=== PATIENT | female | born 1955 | race Caucasian/White ===

== ENCOUNTER 2018-01-21 00:07 | Emergency (ER) | payer OTHER ==
[~2018-01-21 00:07] MED LIST: ESTR0.62 VAGINAL; NYST10007 TOPICAL
[2018-01-21 00:17] VITALS: BP 121/68; PULSE 64; RESP 22; TEMP 98.3; O2SAT 95
[2018-01-21] MEDS ORDERED: PROCHLORPERAZINE INJ 10 MG/2 ML VIAL IV PUSH ONE (00:45)
[2018-01-21] MEDS ORDERED: SODIUM CHLOR 0.9% 1000 ML INJ 1,000 ML IV ONE (00:45)
--- NOTE | 2018-01-21 00:56 | PD ---
HPI Chief Complaint: Abdominal Pain Time Seen by Provider: 00:35 Travel History International Travel<30 days: No Contact w/Intl Traveler<30days: No Traveled to known affect area: No History of Present Illness HPI The patient is a 62 year old female who presents to the [facility] emergency department with a history of abdominal pain that began suddenly at approximately 11 PM. The patient reports that the pain is been constant and comes in waves. She reports that initially it was severe, however it decreased to a 2 out of 10 in severity on arrival to the emergency department. She reports that she had nausea and vomiting 4-5 times prior to arrival. She reports that her last meal was at 6 PM. She reports the pain is similar to when she had pancreatitis in the past. She reports that the pain is a sensation of a brick lying in the midepigastric area. The patient reports the pain radiates to her back. She reports that she last had a glass of wine 4 days ago. She reports that she rarely drinks alcohol. She reports that when she had pancreatitis in 2014, a cause was not able to be determined. She reports that she had a cholecystectomy in 2001. She reports that she last moved her bowels earlier this evening. She denies having any blood in her stool or black or tarry stools. She does report having problems recently with indigestion, she took Tums prior to arrival and also took times a night before when she went to bed. She denies having any chest pain or chest pressure. She reports having shortness of breath with the pain is at its peak. She denies having any known recent fevers, cough or congestion, neck pain, diarrhea, urinary symptoms, or neurologic symptoms. [facility] Past Medical History Narrative Medical The patient's past medical history is significant for sciatica, arthritis, history of pancreatitis in 2014 Hx Anticoagulant Therapy: No Arthritis: Yes (L knee) Autoimmune Disease: No Heart Rhythm Problems: No Cancer: No Cardiovascular Problems: No High Cholesterol: Yes Chemotherapy: No Chest Pain: No Congestive Heart Failure: No Cerebrovascular Accident: No Diabetes: No Diminished Hearing: No Endocrine: No Gastrointestinal Disorders: Yes GERD: No Genitourinary: Yes Headaches: Yes Hiatal Hernia: No Hypertension: No Immune Disorder: No Implanted Vascular Access Dvce: No Musculoskeletal: Yes Neurologic: Yes Psychiatric: No Reproductive: No Respiratory: No Migraines: Yes Pancreatitis: Yes Seizures: No Ulcer: No ?: Not Past Surgical History Narrative Surgical The patient's past surgical history is significant for cholecystectomy in 2002. Abdominal Surgery: Yes Cardiac Surgery: No Cholecystectomy: Yes Ear Surgery: No Endocrine Surgery: No Eye Surgery: Yes (laser) Genitourinary Surgery: No Gynecologic Surgery: No Hysterectomy: No Neurologic Surgery: No Oral Surgery: No Thoracic Surgery: No Other Surgery: Yes (cholecystectomy) Social History Alcohol Use: Yes (She will rarely drinks alcohol, last drink was 4 days ago) Tobacco Use: No Substance Use: No Allergies-Medications (Allergen,Severity, Reaction): Coded Allergies: No Known Allergies (Verified Allergy, Unknown, 01/21/18) Reported Meds & Prescriptions Reported Meds & Active Scripts Active No Active Prescriptions or Reported Medications Review of Systems Except as stated in HPI: all other systems reviewed are Neg General / Constitutional: No: Fever Eyes: No: Visual changes HENT: No: Headaches, Congestion Cardiovascular: No: Chest Pain or Discomfort Respiratory: Positive: Shortness of Breath (With pain), No: Cough Gastrointestinal: Positive: Nausea, Vomiting, Abdominal Pain, Indigestion, No: Diarrhea, Hematemesis, Hematochezia, Changes in Bowel Habits, Loss of Appetite Genitourinary: No: Dysuria Musculoskeletal: No: Pain Skin: No Rash Neurologic: No: Weakness, Focal Abnormalities, Change in Mentation, Slurred Speech, Sensory Disturbance Psychiatric: No: Depression Endocrine: No: Polydipsia Hematologic/Lymphatic: No: Easy Bruising Physical Exam Narrative General: The patient is a well-developed well-nourished female in no acute distress. Head and Neck exam: Head is normocephalic atraumatic. Eyes: EOMI, pupils are equal round and reactive to light. Nose: Midline septum with pink mucous membranes Mouth: Dentition unremarkable. Moist mucus membranes. Posterior oropharynx is not erythematous. No tonsillar hypertrophy. Uvula midline. Airway patent. Neck: No palpable lymphadenopathy. No nuchal rigidity. No thyromegaly. Cardiovascular: Regular rate and rhythm without murmurs, gallops, or rubs. No pulse deficit to the extremities on simultaneous auscultation and palpation of her radial artery. Lungs: Clear to auscultation bilaterally. No wheezes, rhonchi, or rales. Abdomen: Soft, with tenderness on palpation in the midepigastric area and left upper quadrant of the abdomen, no other tenderness on palpation of the other quadrants of the abdomen. No guarding, rebound, or rigidity. Normal bowel sounds are audible. No tenderness on palpation of McBurney's point. Negative Yoder sign. Extremities: No clubbing, cyanosis, or edema. 2+ pulses in all 4 extremities. No calf tenderness on palpation peer Back: No spinous process tenderness to palpation. The patient reports a left-sided CVA tenderness on palpation. Neurologic Exam: Grossly nonfocal. Skin Exam: No rash noted. Intact skin that is warm and dry. Data Data Last Documented VS Vital Signs Date Time Temp Pulse Resp B/P (MAP) Pulse Ox O2 Delivery O2 Flow Rate FiO2 01/21/18 03:28 01/21/18 01:24 80 18 99 Room Air 01/21/18 00:17 98.3 Orders Orders Complete Blood Count With Diff (01/21/18 00:39) Comprehensive Metabolic Panel (01/21/18 00:39) C-Reactive Protein (Crp) (01/21/18 00:39) Lipase (01/21/18 00:39) Urinalysis - C+S If Indicated (01/21/18 00:39) Magnesium (Mg) (01/21/18 00:39) Ct Abd/Pel W Iv Contrast(Rout) (01/21/18 00:39) Iv Access Insert/Monitor (01/21/18 00:39) Ecg Monitoring (01/21/18 00:39) Oximetry (01/21/18 00:39) Lactic Acid (01/21/18 00:39) Sodium Chlor 0.9% 1000 Ml Inj (Ns 1000 M (01/21/18 00:45) Prochlorperazine Inj (Compazine Inj) (01/21/18 00:45) Iohexol 350 Inj (Omnipaque 350 Inj) (01/21/18 02:20) Oral Rehydration (01/21/18 02:49) Ed Discharge Order (01/21/18 03:29) Labs Laboratory Tests Test 01/21/18 00:50 01/21/18 01:47 White Blood Count 8.2 TH/MM3 Red Blood Count 4.71 MIL/MM3 Hemoglobin 14.7 GM/DL Hematocrit 42.7 % Mean Corpuscular Volume 90.6 FL Mean Corpuscular Hemoglobin 31.1 PG Mean Corpuscular Hemoglobin Concent 34.4 % Red Cell Distribution Width 12.7 % Platelet Count 258 TH/MM3 Mean Platelet Volume 8.4 FL Neutrophils (%) (Auto) 73.1 % Lymphocytes (%) (Auto) 20.3 % Monocytes (%) (Auto) 5.6 % Eosinophils (%) (Auto) 0.7 % Basophils (%) (Auto) 0.3 % Neutrophils # (Auto) 6.0 TH/MM3 Lymphocytes # (Auto) 1.7 TH/MM3 Monocytes # (Auto) 0.5 TH/MM3 Eosinophils # (Auto) 0.1 TH/MM3 Basophils # (Auto) 0.0 TH/MM3 CBC Comment DIFF FINAL Differential Comment Blood Urea Nitrogen 17 MG/DL Creatinine 1.14 MG/DL Random Glucose 134 MG/DL Total Protein 7.1 GM/DL Albumin 3.7 GM/DL Calcium Level 9.2 MG/DL Magnesium Level 2.3 MG/DL Alkaline Phosphatase 88 U/L Aspartate Amino Transf (AST/SGOT) 161 U/L Alanine Aminotransferase (ALT/SGPT) 115 U/L Total Bilirubin 0.9 MG/DL Sodium Level 143 MEQ/L Potassium Level 3.5 MEQ/L Chloride Level 104 MEQ/L Carbon Dioxide Level 32.4 MEQ/L Anion Gap 7 MEQ/L Estimat Glomerular Filtration Rate 49 ML/MIN Lactic Acid Level 1.5 mmol/L C-Reactive Protein 0.32 MG/DL Lipase 288 U/L Urine Color YELLOW Urine Turbidity HAZY Urine pH 7.5 Urine Specific [place] 1.017 Urine Protein TRACE mg/dL Urine Glucose (UA) NEG mg/dL Urine Ketones NEG mg/dL Urine Occult Blood NEG Urine Nitrite NEG Urine Bilirubin NEG Urine Urobilinogen 4.0 MG/DL Urine Leukocyte Esterase NEG Urine RBC LESS THAN 1 /hpf Urine WBC 2 /hpf Urine Squamous Epithelial Cells 1 /hpf Urine Amorphous Sediment RARE Urine Bacteria RARE /hpf Urine Hyaline Casts 2 /lpf Urine Granular Casts 6 /lpf Urine Mucus FEW /lpf Urine Yeast (Budding) FEW Microscopic Urinalysis Comment CULT NOT INDICATED MDM Medical Decision Making Medical Screen Exam Complete: Yes Emergency Medical Condition: Yes Medical Record Reviewed: Yes Differential Diagnosis Pancreatitis, versus peptic ulcer disease, versus gastritis, versus gastroesophageal reflux disease, versus viral syndrome Narrative Course During the course of the patient's emergency department visit, the patient's history, examination, and differential diagnosis were reviewed with the patient. The patient was placed on a phototypesetting equipment monitor with oximetry and frequent blood pressure monitoring. The patient had IV access obtained and blood work sent for analysis. The patient was initially provided [-]. The patient's laboratory studies were reviewed and remarkable for a white count of 8.2, hemoglobin 14.7, platelets 258 with 73.1 neutrophils, CMP is remarkable for CO2 32.8, creatinine 1.14, glucose 134, magnesium 2.3, AST is 161, ALT 115, lipase within normal limits at 288, C-reactive protein 0.32. The patient's CMP' s and liver function tests from prior evaluations were reviewed. The patient has had elevated liver enzymes in the past. The patient will be given a copy of her current liver enzymes to discuss with her primary care physician in follow-up. Urinalysis shows 4 urobilinogen, rare bacteria, culture not indicated, no other signs of infection peer Radiology studies were reviewed and remarkable for Last Impressions Abdomen/Pelvis CT 01/21/18 0039 Signed Impressions: Service Date/Time: Sunday, January 21, 2018 01:46 - CONCLUSION: 1. No acute findings in abdomen and pelvic CT. Mild fatty liver. Previous cholecystectomy. Colonic diverticula without diverticulitis. No evidence for pancreatitis. Woodrow Elliott MD CT scan of the abdomen and pelvis shows no acute abnormality. The patient on reexamination is reportedly feeling improved. The patient was started on oral rehydration and is tolerating this well. The patient will be discharged home. The patient will be discharged home with a prescription for Zofran. The patient is resting comfortably and feels better, is alert and in no distress. The patient's results and examination findings were discussed with the patient. The repeat examination is unremarkable and benign. The history, exam, diagnostic testing, and current condition do not suggest any significant pathology to warrant further testing, continued ED treatment, admission, or surgical evaluation at this point. The vital signs have been stable. The patient does not have uncontrollable pain, intractable vomiting, or other significant symptoms. The patient's condition is stable and appropriate for discharge. The patient will pursue further outpatient evaluation with a primary care physician or other designated or consulting physician as indicated in the discharge instructions. The patient expressed understanding and was agreeable with this plan. Diagnosis Primary Impression: Abdominal pain Qualified Codes: R10.10 - Upper abdominal pain, unspecified Additional Impression: Elevated liver enzymes Referrals: Primary Care Physician 2 days Patient Instructions: Abdominal Pain (ED), Acute Nausea and Vomiting (ED), General Instructions Additional Instructions: The patient is provided a copy of her liver enzymes which are noted to be elevated and have been elevated in the past in the emergency department. She is instructed regarding the importance of discussing this further with her primary care physician is additional testing is warranted to evaluate for possible underlying viral hepatitis, versus fatty liver, versus autoimmune related hepatitis. Regarding the elevated liver enzymes, the patient is instructed to avoid Tylenol and alcohol. Med/Other Pt SpecificInfo: Prescription(s) given Scripts Ondansetron Odt (Zofran Odt) 4 Mg Tab 4 MG SL Q6HR Y for Nausea/Vomiting, #7 TAB 0 Refills Prov: Marcela Rasmussen MD 01/21/18 Disposition: 01 DISCHARGE HOME Condition: Stable Marcela Rasmussen MD January 21, 2018 00:56
[2018-01-21 01:00] VITALS: O2SAT 98
[2018-01-21 01:01] LABS: BASOPHIL % 0.3 % (0.0-2.0); EOSINOPHIL # 0.1 TH/MM3 (0-0.4); EOSINOPHIL % 0.7 % (0.0-4.0); HEMATOCRIT 42.7 % (35.0-46.0); HEMOGLOBIN 14.7 GM/DL (11.6-15.3); LYMPH % 20.3 % (9.0-44.0); LYMPHOCYTE # 1.7 TH/MM3 (1.0-4.8); MEAN CELL VOLUME 90.6 FL (80.0-100.0); MEAN CORPUSCULAR HEMOGLOBIN 31.1 PG (27.0-34.0); MEAN CORPUSCULAR HGB CONC 34.4 % (32.0-36.0); MEAN PLATELET VOLUME 8.4 FL (7.0-11.0); MONO % 5.6 % (0.0-8.0); MONOCYTE # 0.5 TH/MM3 (0-0.9); NEUT % 73.1 % (16.0-70.0); PLATELET COUNT 258 TH/MM3 (150-450); RED BLOOD COUNT 4.71 MIL/MM3 (4.00-5.30); RED CELL DISTRIBUTION WIDTH 12.7 % (11.6-17.2); WHITE BLOOD COUNT 8.2 TH/MM3 (4.0-11.0)
[2018-01-21 01:24] VITALS: BP 121/70; PULSE 80; RESP 18; O2SAT 99
[2018-01-21 01:26] LABS: ALBUMIN 3.7 GM/DL (3.4-5.0); ALT (GPT) 115 U/L (10-53); AST (GOT) 161 U/L (15-37); BICARBONATE 32.4 MEQ/L (21.0-32.0); BLOOD UREA NITROGEN 17 MG/DL (7-18); C-REACTIVE PROTEIN 0.32 MG/DL (0.00-0.30); CALCIUM 9.2 MG/DL (8.5-10.1); CHLORIDE 104 MEQ/L (98-107); CREATININE 1.14 MG/DL (0.50-1.00); GLOMERULAR FILTRATION RATE 49 ML/MIN (>89); GLUCOSE,RANDOM 134 MG/DL (74-106); MAGNESIUM 2.3 MG/DL (1.5-2.5); SODIUM (NA) 143 MEQ/L (136-145)
[2018-01-21 01:29] LABS: ALKALINE PHOSPHATASE 88 U/L (45-117); TOTAL BILIRUBIN ADULT 0.9 MG/DL (0.2-1.0); TOTAL PROTEIN 7.1 GM/DL (6.4-8.2)
[2018-01-21 01:56] LABS: AMORPHOUS SEDIMENT, URINE RARE; BACTERIA, URINE RARE /hpf; BILIRUBIN, URINE NEG (NEG); BLOOD, URINE NEG (NEG); GLUCOSE,URINE NEG (NEG); HYALINE CAST, URINE 2 /lpf (RARE); KETONE, URINE NEG (NEG); MUCUS URINE FEW /lpf (OCC); NITRITE,URINE NEG (NEG); PH, URINE 7.5 (5.0-8.5); SQUAMOUS EPITHELIAL CELL URINE 1 /hpf (0-5); URINE COLOR YELLOW (YELLW/STRAW); URINE LEUKOCYTE ESTERASE NEG (NEG)
[2018-01-21] MEDS ORDERED: IOHEXOL 350 MG/ML 10 ML VIAL (for RAD DIAG) IVCONTRAST ONE (02:20)
--- NOTE | 2018-01-21 02:29 | RADRPT ---
EXAM DATE/TIME: 01/21/2018 01:46 [place] COMPARISON: CT ABDOMEN & PELVIS W CONTRAST, June 26, 2015, 8:00. INDICATIONS : Abdomen pain. IV CONTRAST: 100 cc Omnipaque 350 (iohexol) IV ORAL CONTRAST: No oral contrast ingested. RADIATION DOSE: 10.09 CTDIvol (mGy) MEDICAL HISTORY : Pancreatitis. SURGICAL HISTORY : Cholecystectomy. ENCOUNTER: Initial ACUITY: 1 day PAIN SCALE: 5/10 LOCATION: Bilateral abdomen TECHNIQUE: Volumetric scanning of the abdomen and pelvis was performed. Using automated exposure control and ad justment of the mA and/or kV according to patient size, radiation dose was kept as low as reasonably achievable to obtain optimal diagnostic quality images. DICOM format image data is available electro nically for review and comparison. FINDINGS: Lung bases are clear. Mild fatty liver. Spleen, adrenals, kidneys and pancreas unremarkable. Previous cholecystectomy. No free fluid. No bowel obstruction. No adenopathy. CONCLUSION: 1. No acute findings in abdomen and pelvic CT. Mild fatty liver. Previous cholecystectomy. Colonic di verticula without diverticulitis. No evidence for pancreatitis. Woodrow Elliott MD on January 21, 2018 at 2:24 Board Certified Radiologist. This report was verified electronically.
[2018-01-21] MEDS ORDERED: ZOFR4TAB3 SL (03:34)
== END 2018-01-21 03:43 | disposition home or self-care (01) ==
LOC: NEPE 00:07
DX: R10.10 Upper abdominal pain, unspecified (principal); K76.0 Fatty (change of) liver, not elsewhere classified; K57.30 Diverticulosis of large intestine without perforation or abscess without bleeding; R06.02 Shortness of breath; R11.2 Nausea with vomiting, unspecified
CPT/HCPCS: 74177; 80053; 81001; 83605; 83690; 83735; 85025; 86140; 96361; 96374; 99284; J0780; J7030; Q9967